=== PATIENT | male | born 1995 | race Two or more races ===

== ENCOUNTER 2016-05-23 19:33 | Emergency (ER) | payer MEDICAID ==
[~2016-05-23] VITALS: Ht 177.8 cm; Wt 99.8 kg
[2016-05-23] MEDS ORDERED: IBUPROFEN600 MG ORAL (21:28)
[2016-05-23 22:46] VITALS: BP 131/81
--- NOTE | 2016-05-23 22:59 | Emergency Room Report ---
History of Present Illness General Chief Complaint: Pain Source: Patient Present Illness HPI The patient is a 20-year-old male presenting with right hand pain which began this afternoon after falling onto the hand. The patient states that he hit the ground with a closed fist and is now experiencing a 3/10 dull ache to the medial right hand. Pain does not radiate. The patient denies prior injury to this hand. Patient denies numbness or tingling. The patient denies any other symptoms Allergies: Coded Allergies: No Known Allergies (Unverified , 05/23/16) Patient History Past Medical History: see triage record Pertinent Family History: none Reviewed Nursing Documentation: PMH: Agreed, PSxH: Agreed Nursing Documentation-PMH Past Medical History: No Stated History Review of Systems All Other Systems: negative except mentioned in HPI Physical Exam Vital Signs Date Time Temp Pulse Resp B/P Pulse Ox O2 Delivery O2 Flow Rate FiO2 05/23/16 20:04 99.0 90 20 127/90 98 Room Air Sp02 EP Interpretation: reviewed, normal General Appearance: no apparent distress, alert, GCS 15, non-toxic Head: normocephalic, atraumatic Eyes: bilateral eye PERRL, bilateral eye normal inspection Musculoskeletal: back normal, gait/station normal, normal range of motion, swelling - Over medial R hand, tender - TTP over R hand 5th MC Neurologic: alert, oriented x3, responsive, motor strength/tone normal, sensory intact, speech normal Skin: normal color, no rash, warm/dry, well hydrated Lymphatic: no adenopathy Procedures Splinting Splinting : Consent: Verbal Location: L arm Hand-Made Type: plaster Splint: ulnar Pre-Proc Neuro Vasc Exam: normal Post-Proc Neuro Vasc Exam: normal Patient Tolerated: Well Complications: None Medical Decision Making PA Attestation Dr. doss is my supervising physician. Patient management was discussed with my supervising physician Diagnostic Impression: Primary Impression: Fracture, metacarpal Qualified Codes: S62.356A - Nondisplaced fracture of shaft of fifth metacarpal bone, right hand, initial encounter for closed fracture ER Course The patient is a 20-year-old male presenting with right hand pain which began this afternoon after falling onto the hand Ddx considered include but not limited to sprain/strain, fracture, contusion Physical exam: Vitals within normal limits. No apparent distress. Right hand: Full active range of motion of fingers and wrist. Sensation intact to light touch. There is tenderness to palpation over the fifth metacarpal with overlying swelling. Patient declines pain medication X-ray of the hand shows a fracture of the fifth metacarpal. The patient is placed in a ulnar gutter splint. ER precautions are given and the patient will follow up with primary care doctor. Other X-Ray Diagnostic Results Other X-Ray Diagnostic Results : X-Ray Ordered: R hand Date: May 23, 2016 EP Interpretation: Yes Findings: no dislocation, other - Fracture of 5th MC Number of Views: 3 PA Scribe Text I am acting as scribe for my supervising physician. My supervising physician's interpretation of the Right hand x-rays that there is a fracture of the fifth metacarpal Last Vital Signs Date Time Temp Pulse Resp B/P Pulse Ox O2 Delivery O2 Flow Rate FiO2 05/23/16 22:46 99.0 72 16 131/81 100 Room Air Status: improved Disposition: HOME, SELF-CARE Condition: Improved Scripts Ibuprofen* (MOTRIN*) 600 Mg Tablet 600 MG ORAL Q8H Y for For Pain, #30 TAB 0 Refills Prov: NICHOLAS LOPEZ 05/23/16 Referrals: [facility] (PCP) Departure Forms: Return to Work Return to Work Date: May 25, 2016 Other Restrictions: Limited use of R hand Patient Instructions: Metacarpal Fracture Additional Instructions: I discussed my findings with the patient. All questions and concerns have been answered. Treatment and medication compliance have been addressed. I advised the patient that they need to follow up with PMD in 3-5 days. Return to ED if pain remains or worsens, numbness or tingling occurs, new rash is noticed, fever is noticed, or if needed for any reason. Patient verbalized understanding of discharge instructions. NICHOLAS LOPEZ May 23, 2016 22:59
--- NOTE | 2016-05-24 09:52 | Diagnostic Imaging Report ---
Indication: PAIN Technique: 3 views right hand Comparison: none Findings: There is a fracture of the fifth metacarpal shaft. This is minimally displaced and minimally angulated. There is overlying soft tissue swelling. No other acute fractures. No dislocations. Impression: Positive for fifth metacarpal fracture This agrees with the preliminary interpretation provided by the emergency room physician
== END 2016-05-23 22:45 | disposition home or self-care (01) ==
LOC: EMR 20:20
DX: S62.356A Nondisplaced fracture of shaft of fifth metacarpal bone, right hand, initial encounter for closed fracture (principal); W18.30XA Fall on same level, unspecified, initial encounter; Y92.9 Unspecified place or not applicable; Y99.8 Other external cause status
CPT/HCPCS: 29125; 99283